=== PATIENT | female | born 1995 | race Two or more races ===

== ENCOUNTER 2020-02-20 06:17 | Inpatient (IN) | payer OTHER ==
[~2020-02-20] VITALS: Ht 157.5 cm; Wt 69.1 kg
[2020-02-20] MEDS ORDERED: OXYTOCIN 30U/ 0.9% NaCL 500ML 500 ML IV ONE (06:35)
[2020-02-20] MEDS ORDERED: D5%-LACTATED RINGERS 1,000 ML IV SCH (06:35)
[2020-02-20] MEDS: LACTATED RINGERS 1,000 ML IV SCH ×2 (06:35→11:48)
[2020-02-20] MEDS ORDERED: ONDANSETRON 2MG/ML, 2ML IVPush PRN ×2 (07:00→11:30)
[2020-02-20] MEDS ORDERED: TERBUTALINE 1 MG/ML, 1ML SQ PRN (07:00)
[2020-02-20] MEDS ORDERED: FENTANYL PF 100 MCG/2ML IV PRN (07:00)
[2020-02-20] MEDS ORDERED: TERBUTALINE 1 MG/ML, 1ML IVPush PRN (07:00)
[2020-02-20] MEDS ORDERED: FENTANYL PF 100 MCG/2ML IVPush PRN (07:00)
[2020-02-20] MEDS ORDERED: GENTAMICIN PER PHARMACY MC PRN (07:00)
[2020-02-20] MEDS: AMPICILLIN 2 GM in SODIUM CHLORIDE 0.9% 100 ML IV SCH ×3 (07:00→20:30)
[2020-02-20] MEDS ORDERED: ACETAMINOPHEN 325 MG TABLET ONE (07:14)
[2020-02-20 07:20] LABS: MICROSCOPIC INDICATED
[2020-02-20 07:48] LABS: RAPID INFLUENZA A Negative (Negative); RAPID INFLUENZA B Negative (Negative)
[2020-02-20] MEDS ORDERED: PHARMACOKINETIC CONSULTATION MC ONE (08:00)
[2020-02-20] MEDS ORDERED: PHARMACOKINETIC MONITORING MC PRN (08:00)
[2020-02-20 08:02] LABS: MEAN CORPUSCULAR HEMOGLOBIN 30.6 pg (27.0-34.8); MEAN CORPUSCULAR HGB CONC 33.2 g/dL (32.4-35.8); MEAN CORPUSCULAR VOLUME 92.2 fL (80-100); MEAN PLATELET VOLUME 8.1 fL (7.4-10.4); PLATELET COUNT 290 x10^3/uL (130-400); RED BLOOD COUNT 3.56 x10^6/uL (3.82-5.3); RED CELL DISTRIBUTION WIDTH 13.3 % (9.6-15.2)
[2020-02-20] MEDS ORDERED: FENTANYL PF 100 MCG/2ML ONE ×2 (08:04→11:50)
[2020-02-20] MEDS: GENTAMICIN 120 MG in SODIUM CHLORIDE 0.9% 50 ML IV SCH ×3 (08:10→23:55)
[2020-02-20 08:24] LABS: BASOPHILS # (AUTO) 0.05 x10^3/uL (0-0.1); BASOPHILS % (AUTO) 0 % (0-1); EOSINOPHILS % (AUTO) 0 % (1-7); LYMPHOCYTES # (AUTO) 1.75 x10^3/uL (1-3.4); LYMPHOCYTES % (AUTO) 10 % (22-44); MD SCAN; MONOCYTES % (AUTO) 7 % (2-9); NEUTROPHILS # (AUTO) 15.22 x10^3/uL (1.8-6.8); NEUTROPHILS % (AUTO) 84 % (42-75)
[2020-02-20 08:41] LABS: ALBUMIN 2.5 g/dL (3.4-5.0); ANION GAP 10 mmol/L (5-15); CALCIUM 8.3 mg/dL (8.5-10.1); CHLORIDE 107 mmol/L (98-107)
[2020-02-20 08:46] LABS: ALANINE AMINOTRANSFERASE 12 U/L (12-78); ALKALINE PHOSPHATASE 245 U/L (45-117); BILIRUBIN,TOTAL 0.8 mg/dL (0.2-1.0); CREATININE 0.64 mg/dL (0.55-1.02); TOTAL PROTEIN 6.1 g/dL (6.4-8.2)
[2020-02-20] MEDS ORDERED: BUPIVACAINE 0.25% ONE ×3 (08:51→11:50)
[2020-02-20] MEDS ORDERED: FENTANYL/BUPIV./NS/PF 250 ML EPIDCONT ONE ×2 (08:51→09:31)
[2020-02-20] MEDS ORDERED: LIDOCAINE 1%, 20ML ONE ×2 (09:31→12:47)
[2020-02-20] MEDS ORDERED: LIDOCAINE/PF 1.5%-EPI 1:200K, 30ML ONE (09:31)
[2020-02-20] MEDS ORDERED: EPHEDRINE 50 MG/ML, 1ML ONE (10:35)
[2020-02-20] MEDS ORDERED: LACTATED RINGERS 1,000 ML IV SCH (11:08)
[2020-02-20] MEDS ORDERED: FENTANYL/BUPIV./NS/PF 250 ML EPIDCONT SCH (11:08)
[2020-02-20] MEDS ORDERED: DIPHENHYDRAMINE 50 MG/ML, 1ML IVPush PRN (11:30)
[2020-02-20] MEDS ORDERED: NALOXONE 0.4 MG/ML, 1ML IVPush PRN (11:30)
[2020-02-20] MEDS ORDERED: EPHEDRINE 50 MG/ML, 1ML IVPush PRN (11:30)
[2020-02-20] MEDS ORDERED: LACTATED RINGERS 1,000 ML IVBOLUS PRN (11:30)
[2020-02-20] MEDS ORDERED: LACTATED RINGERS 1,000 ML INTUTE PRN (12:00)
[2020-02-20] MEDS ORDERED: LACTATED RINGERS 1,000 ML INTUTE SCH (12:00)
[2020-02-20] MEDS ORDERED: NEWBORN KIT ONE (12:21)
[2020-02-20] MEDS ORDERED: MISOPROSTOL 200 MCG TABLET ONE (12:47)
[2020-02-20] MEDS ORDERED: OXYTOCIN 30U/ 0.9% NaCL 500ML 500 ML ONE (12:47)
[2020-02-20] MEDS ORDERED: METHYLERGONOVINE 0.2 MG/ML IM ONE (14:14)
[2020-02-20] MEDS: OXYTOCIN 30U/ 0.9% NaCL 500ML 500 ML IV SCH (14:41)
[2020-02-20] MEDS ORDERED: METOCLOPRAMIDE 5 MG/ML, 2ML IV PRN (15:00)
[2020-02-20] MEDS ORDERED: CARBOPROST TROMETHAMINE 250 MCG/ML, 1ML IM PRN (15:00)
[2020-02-20] MEDS ORDERED: ACETAMINOPHEN 325 MG TABLET PO PRN (15:00)
[2020-02-20] MEDS ORDERED: SIMETHICONE 80 MG CHEW TAB PO PRN (15:00)
[2020-02-20] MEDS ORDERED: IBUPROFEN 800 MG TABLET PO PRN (15:00)
[2020-02-20] MEDS ORDERED: ONDANSETRON 2MG/ML, 2ML IV PRN (15:00)
[2020-02-20] MEDS ORDERED: OXYcodone/APAP 5/325MG TABLET PO PRN ×2 (15:00)
[2020-02-20] MEDS ORDERED: ONDANSETRON 2MG/ML, 2ML ONE (15:58)
[2020-02-20 18:00] VITALS: BP 99/66
[2020-02-20 20:30] VITALS: BP 107/72
[2020-02-20 22:31] LABS: MEAN CORPUSCULAR HEMOGLOBIN 31.1 pg (27.0-34.8); MEAN CORPUSCULAR HGB CONC 33.9 g/dL (32.4-35.8); MEAN CORPUSCULAR VOLUME 91.8 fL (80-100); MEAN PLATELET VOLUME 8.2 fL (7.4-10.4); PLATELET COUNT 269 x10^3/uL (130-400); RED BLOOD COUNT 3.16 x10^6/uL (3.82-5.3); RED CELL DISTRIBUTION WIDTH 13.6 % (9.6-15.2)
[2020-02-20 22:55] LABS: MD YES
[2020-02-20 22:58] LABS: BAND#(MANUAL) 5.98 x10^3/uL; BANDS%(MANUAL) 25 % (0-7); LYMPH#(MANUAL) 1.67 x10^3/uL (1-3.4); LYMPHS% (MANUAL) 7 % (22-44); MONOS#(MANUAL) 0.48 x10^3/uL (0.3-2.7); MONOS% (MANUAL) 2 % (2-9); POLYCHROMASIA 1+; SEG#(MANUAL) 15.77 x10^3/uL (1.8-6.8); SEGS% (MANUAL) 66 % (42-75)
[2020-02-20 22:59] LABS: <PLATELET ESTIMATE> ADEQUATE; <PLT MORPHOLOGY> NORMAL PLT MORPH; ANISOCYTOSIS 1+; HYPOCHROMIA 1+
[2020-02-21] VITALS: BP 100/67
[2020-02-21] MEDS: OXYTOCIN 30U/ 0.9% NaCL 500ML 500 ML IV SCH ×3 (00:41→20:41)
[2020-02-21] MEDS: AMPICILLIN 2 GM in SODIUM CHLORIDE 0.9% 100 ML IV SCH ×2 (03:07→10:16)
[2020-02-21 04:00] VITALS: BP 102/70
[2020-02-21] MEDS: PRENATAL VIT/IRON/FA 1 EACH TABLET PO SCH (08:45)
[2020-02-21] MEDS: IBUPROFEN 600 MG TABLET PO PRN ×4 (08:45→23:48)
[2020-02-21] MEDS: DOCUSATE 100 MG CAPSULE PO PRN ×2 (08:45→23:48)
[2020-02-21] MEDS: GENTAMICIN 120 MG in SODIUM CHLORIDE 0.9% 50 ML IV SCH (08:46)
[2020-02-21 09:00] VITALS: BP 98/57
[2020-02-21 12:00] VITALS: BP 92/60
[2020-02-21 17:30] VITALS: BP 91/61
[2020-02-21 21:00] VITALS: BP 93/62
[2020-02-22 00:05] VITALS: BP 95/63
[2020-02-22 05:30] VITALS: BP 92/60
[2020-02-22] MEDS: IBUPROFEN 600 MG TABLET PO PRN ×2 (05:53→12:10)
[2020-02-22] MEDS: OXYTOCIN 30U/ 0.9% NaCL 500ML 500 ML IV SCH (06:41)
[2020-02-22 07:30] VITALS: BP 93/61
[2020-02-22] MEDS: DOCUSATE 100 MG CAPSULE PO PRN (11:25)
[2020-02-22] MEDS: PRENATAL VIT/IRON/FA 1 EACH TABLET PO SCH (11:25)
[2020-02-22 12:17] VITALS: BP 99/65
[2020-02-22] MEDS ORDERED: IBUP-1222 PO (13:21)
[2020-02-22] MEDS ORDERED: DIPH,PERTUSS(ACELL),TET VAC/PF NC IM-VACC ONE (13:31)
== END 2020-02-22 14:42 | disposition home or self-care (01) | DRG 806 ==
LOC: LDOP 06:17 → LDIP 06:57 → 2NW 16:57
PROVIDERS: ADMIT Obstetrics & Gynecology; ATTEND Obstetrics & Gynecology
PROC: 10E0XZZ Delivery of Products of Conception, External Approach (ICD-10-PCS; principal; 2020-02-20)
PROC: 0KQM0ZZ Repair Perineum Muscle, Open Approach (ICD-10-PCS; 2020-02-20)
PROC: 3E0R3BZ Introduction of Anesthetic Agent into Spinal Canal, Percutaneous Approach (ICD-10-PCS; 2020-02-20)
PROC: 00HU33Z Insertion of Infusion Device into Spinal Canal, Percutaneous Approach (ICD-10-PCS; 2020-02-20)
DX: O42.02 Full-term premature rupture of membranes, onset of labor within 24 hours of rupture (principal); O75.2 Pyrexia during labor, not elsewhere classified; Z37.0 Single live birth; O70.1 Second degree perineal laceration during delivery; Z3A.38 38 weeks gestation of pregnancy; Z83.3 Family history of diabetes mellitus; O76 Abnormality in fetal heart rate and rhythm complicating labor and delivery; Z20.828 Contact with and (suspected) exposure to other viral communicable diseases
CPT/HCPCS: 36415; 84145; 87400; J3490; 80053; 81001; 84112; 85025; 86140; 86592; 86850; 86900; 87070; 87075; 87086; 87205; 88307; G0378; J0290; J2405; J3010; J1580; J7120